=== PATIENT | female | born 1955 | race Caucasian/White ===

== ENCOUNTER 2023-06-23 05:45 | Observation (INO) ==
[~2023-06-23 05:45] MED LIST: Metoclopramide 5 MG/ML VIAL (10 mg) IV PRN; NS 0.45% 1000 ml BAG 1,000 ML IV SCH; Naloxone 0.4 mg VIAL 0.4 mg/ml 1 ml VIAL IV PRN; Ondansetron 4 mg VIAL 2 MG/ML 2 ml VIAL IV PRN
[2023-06-23] MEDS: Buffered Lidocaine 1% SYRIN 1 ml INTRADERM ONE (05:57)
[2023-06-23] MEDS ORDERED: Scopolamine 1 mg/72hr PATCH ONE (06:05)
[2023-06-23] MEDS ORDERED: ceFAZolin 2 GM PREMIX 2 GM/50 ML BAG ONE (06:06)
[2023-06-23] MEDS: Scopolamine 1 mg/72hr PATCH TRANSDERM ONE (06:33)
[2023-06-23] MEDS: Lactated Ringers 1000 ml BAG 1,000 ML IV SCH ×2 (06:33→13:20)
[2023-06-23 06:36] LABS: Rapid COVID-19 Molecular Undetected (Undetected)
[2023-06-23] MEDS ORDERED: Midazolam 2 mg/2 ml VIAL 1 mg/ml 2 ml VIAL (2 mg) ONE ×2 (07:01→07:50)
[2023-06-23] MEDS ORDERED: Bupivacaine 0.5% 50 ML MDV VIAL ONE (07:30)
[2023-06-23] MEDS ORDERED: Vancomycin 1,000 MG VIAL ONE (07:30)
[2023-06-23] MEDS ORDERED: ROPIVACAINE 5 MG/ML 30 ML BTL (0.5%) ONE (07:36)
[2023-06-23] MEDS ORDERED: fentaNYL 100 mcg/2 ml 50 MCG/ML VIAL ONE ×4 (07:54→12:38)
[2023-06-23] MEDS ORDERED: Phenylephrine 40 mcg/mL 10mL (400mcg) SYRINGE ONE (08:30)
[2023-06-23] MEDS ORDERED: Propofol 10 MG/ML 20 ML BTL ONE (10:09)
[2023-06-23] MEDS: fentaNYL 100 mcg/2 ml 50 MCG/ML VIAL IV PRN (11:29)
[2023-06-23] MEDS ORDERED: Morphine 2 MG/ML SYRINGE IV PRN (11:34)
[2023-06-23] MEDS ORDERED: Ondansetron ODT 4 mg TAB 4 MG TAB PO PRN (11:34)
[2023-06-23] MEDS ORDERED: Ondansetron 4 mg VIAL 2 MG/ML 2 ml VIAL IV PRN (11:34)
[2023-06-23] MEDS ORDERED: Lactulose 30 ml UDC PO PRN (11:34)
[2023-06-23] MEDS ORDERED: Magnesium Hydroxide LIQ 30 ML UDC PO PRN (11:34)
[2023-06-23] MEDS: ceFAZolin 1 GM ADVAN 1 GM in NS 0.9% 50 ML 50 ML IVPB SCH (17:04)
[2023-06-23] MEDS: Magnesium Hydroxide LIQ 30 ML UDC PO SCH (20:24)
[2023-06-24 06:12] LABS: Hematocrit 27.7 % (35-45); Hemoglobin 9.5 g/dL (11.5-14.3); Mean Platelet Volume 7.9 fL (7.5-11.2); Platelet Count 313 10^3/uL (150-450)
[2023-06-24 07:13] LABS: Calcium 8.5 mg/dL (8.6-10.3); Creatinine, Serum 0.55 mg/dL (0.51-0.95); Potassium 4.3 mmol/L (3.5-5.0); eGFR CKD-EPI 100.4 (>60)
[2023-06-24] MEDS: Acetaminophen IV 1 GM/100ML 1,000 MG/100 ML BAG IV ONE (07:28)
[2023-06-24] MEDS: Vitamin THERAPEUTIC TAB PO SCH (07:59)
[2023-06-24 14:08] VITALS: BP 108/58
== END 2023-06-24 16:10 | disposition home or self-care (01) ==
LOC: OR 05:45 → INTOOBSV 11:34 → SSU 11:34
PROVIDERS: ADMIT Orthopaedic Surgery; ATTEND Orthopaedic Surgery